=== PATIENT | female | born 1960 | race Caucasian/White ===

== ENCOUNTER → 2025-01-29 12:57 | Outpatient (CLI) | payer OTHER, SELFPAY ==
--- NOTE | 2025-01-29 13:00 | DI.MG.S_ITS ---
MM screening mammo BI: 01/29/2025. BI-RADS: 1 CLINICAL: 64-year old female for bilateral screening mammogram. Tyrer-Cuzick lifetime risk of 9.0%. No personal or first-degree family history of breast cancer. PRIOR EXAMS: No prior examinations available. MAMMOGRAPHY TECHNIQUE: 2D and 3D (tomosynthesis) digital mammographic views obtained, with additional images as needed for full coverage. Current study was also evaluated with a Computer Aided Detection (CAD) system. DENSITY C. The breasts are heterogeneously dense, which may obscure small masses. MAMMOGRAPHY FINDINGS Bilateral: No suspicious mass, asymmetry, microcalcification, or other abnormality seen. IMPRESSION: * No evidence of malignancy. RECOMMENDATIONS Bilateral * Annual screening mammography. OVERALL ASSESSMENT CATEGORY BI-RADS-1: Negative. The [employer] recommends annual screening mammography beginning at age 40 for women with average risk of breast cancer. ELECTRONICALLY SIGNED: Butch Andrea M.D. on 02/17/2025 at 11:46:22 AM PT Interpreting Station ID: [id number]
--- NOTE | 2025-01-29 13:01 | DI.RAD.S_ITS ---
PROCEDURE: XR DEXA AXIAL SKELETON INDICATIONS: screenings/ thyroid nodule COMPARISON: None. FINDINGS: Lumbar Spine: Bone mineral density 0.852 g/cm2, T score -1.8. Left Femoral Neck: Bone mineral density 0.640 g/cm2, T score -1.9. Left Hip: Bone mineral density 0.832 g/cm2, T score -0.9. Fracture Risk Calculation (when applicable): 10-year fracture risk of a major osteoporotic fracture 9.3 percent and of a hip fracture 1.1 percent. (T score greater or equal to -1.0 to: NORMAL) (T score from -1.1 to -2.4: OSTEOPENIA) (T score less than or equal to -2.5: OSTEOPOROSIS) IMPRESSION: Low bone mineral density (osteopenia) by WHO classification. Follow-up guidelines as follows: Osteoporosis: Consider a repeat DEXA and Vertebral Fracture Assessment (VFA) exam in 2 years or sooner if medically necessary, to reassess this patient's status. Osteopenia: Consider a repeat DEXA in 2-3 years to reassess this patient's status, or if there is a new clinical indication. Normal: Consider a repeat DEXA in 5 years or sooner, or if there is a new clinical indication. All treatment decisions require clinical judgment and consideration of individual patient factors, including patient preferences, comorbidities, previous drug use, risk factors not captured in the FRAX model (e.g., frailty, falls, vitamin D deficiency, increased bone turnover, interval significant decline in bone density ) and possible under- or over-estimation of fracture risk by FRAX. In addition, the NOF Guide recommends that FDA-approved medical therapies be considered in postmenopausal women and men age >= 50 years with a: * Hip or vertebral (clinical or morphometric) fracture * T-score of <=-2.5 at the spine or hip * Ten-year fracture probability by FRAX of >= 3% for hip fracture or >=20% for major osteoporotic fracture. Dictated by: Pancho George M.D. on 01/30/2025 at 9:55 Approved by: Pancho George M.D. on 01/30/2025 at 10:08
--- NOTE | 2025-01-29 13:01 | DI.US.S_ITS ---
PROCEDURE: US THYROID INDICATIONS: screenings/ thyroid nodule TECHNIQUE: Real-time scanning was performed of the thyroid gland, with image documentation. COMPARISON: None. FINDINGS: Thyroid: Right lobe measures 3.9 x 1.4 x 1.5 cm. Left lobe measures 3.8 x 1.3 x 1.7 cm. Isthmus is 0.2 cm thick. Echotexture is mildly heterogeneous. No focal nodules or mass lesions. No adenopathy. IMPRESSION: Unremarkable sonographic evaluation of the thyroid gland. No focal nodules or mass lesions. No adenopathy. Dictated by: Butch Andrea M.D. on 01/29/2025 at 17:58 Approved by: Butch Andrea M.D. on 01/29/2025 at 17:59
== END ==
PROVIDERS: PCP Registered Nurse; Referring Provider Registered Nurse; Visit Provider Registered Nurse
DX: Z12.31 Encounter for screening mammogram for malignant neoplasm of breast (principal); R92.333 Mammographic heterogeneous density, bilateral breasts; Z13.820 Encounter for screening for osteoporosis; M85.89 Other specified disorders of bone density and structure, multiple sites; Z78.0 Asymptomatic menopausal state; Z86.39 Personal history of other endocrine, nutritional and metabolic disease
CPT/HCPCS: 76536; 77063; 77067; 77080